=== PATIENT | female | born 1985 | race Caucasian/White ===

== ENCOUNTER → 2016-11-30 | Outpatient (REF) | payer OTHER | END | disposition home or self-care (01) | LOC: M SMT 16:54 | PROVIDERS: ATTEND Urology | DX: N39.0 Urinary tract infection, site not specified (principal) ==

== ENCOUNTER → 2016-12-06 | Outpatient (CLI) | payer OTHER ==
--- NOTE | 2016-12-06 09:39 | REP ---
CT ABDOMEN AND PELVIS WITHOUT IV OR ORAL CONTRAST: 12/06/2016 INDICATION: Recurrent urinary tract infection. Right-sided pain. COMPARISON: None. TECHNIQUE: 3 mm spiral axial sections performed through the abdomen and pelvis without IV or oral contrast. FINDINGS: The lung bases are clear bilaterally. Liver, spleen, adrenal glands and kidneys are normal. There is no hydronephrosis or obstructing ureteral calculi. There is a 1 mm nonobstructing left lower renal calculus. There is no hydronephrosis. The pancreas has an undulating appearance medial to the spleen, most compatible with anatomic variant. The stomach is contracted. Small bowel is without obstruction. Abdominal aorta is of normal course and caliber. There has been a prior cholecystectomy. There is a 7.5 mm tiny umbilical hernia containing omental fat only. The bladder is contracted. The uterus and adnexa are within normal limits. There is moderate stool within the right and transverse colon. There is no free air or ascites. IMPRESSION: No hydronephrosis or obstructing ureteral calculi bilaterally. No renal cortical scarring. 1 mm nonobstructing calculus lower pole left kidney. Contracted bladder. Mild fullness within the tail of the pancreas most compatible with undulating contour / normal variant of the distal pancreas. May consider abdominal ultrasound in further evaluation. MTDD
== END | disposition home or self-care (01) ==
LOC: M RAD 07:37 → EDUNIT# 08:00
PROVIDERS: ATTEND Urology
DX: N39.0 Urinary tract infection, site not specified (principal); N20.0 Calculus of kidney

== ENCOUNTER → 2017-05-10 | Outpatient (REF) | payer OTHER | LOC: M LAB REF 04-09 08:54 | PROVIDERS: ATTEND Physician Assistant | DX: R10.9 Unspecified abdominal pain (principal) ==

== ENCOUNTER → 2017-12-02 | Outpatient (REF) | payer OTHER | LOC: M LAB REF 16:38 | DX: N39.0 Urinary tract infection, site not specified (principal) ==

== ENCOUNTER 2017-12-06 07:32 | Day surgery (SDC) | payer OTHER ==
[2017-12-06] MEDS: LR 1,000 ML IV (07:45)
[2017-12-06] MEDS ORDERED: MIDAZOLAM INJ 2 MG/2 ML VIAL (J2250) As Ordered (08:16)
[2017-12-06] MEDS ORDERED: LIDOCAINE 2% INJ 100 MG/5 ML SDV (FOR ANES.) As Ordered (08:16)
[2017-12-06] MEDS ORDERED: PROPOFOL 200 MG/20 ML VIAL As Ordered (08:16)
[2017-12-06] MEDS ORDERED: ONDANSETRON 4MG/2ML VIAL (J2405) As Ordered (08:16)
[2017-12-06] MEDS ORDERED: METOCLOPRAMIDE INJ 10MG/2ML VIAL (J2765) As Ordered (08:16)
[2017-12-06] MEDS ORDERED: fentaNYL 100 MCG/2 ML INJECTION (J3010) As Ordered (08:16)
[2017-12-06] MEDS ORDERED: SCOPOLAMINE 1MG TRANSDERMAL PATCH As Ordered (08:21)
[2017-12-06 08:23] LABS: CONTROL LINE UCG INT CTR LINE PRESENT; URINE PREG TEST NEGATIVE (NEGATIVE)
[2017-12-06] MEDS ORDERED: CEFAZOLIN 100MG/ML SYRINGE 1GM(J0690 PER 500MG) As Ordered (08:26)
[2017-12-06] MEDS: SCOPOLAMINE 1MG TRANSDERMAL PATCH TOP (08:28)
[2017-12-06] MEDS: CEFAZOLIN SOD 1 GM in APPROPRIATE DILUENT 1 EA IV (08:40)
[2017-12-06] MEDS ORDERED: ePHEDrine INJ 50 MG/ML VIAL As Ordered (08:52)
[2017-12-06] MEDS ORDERED: KETOROLAC 60 MG/2 ML VIAL (J1885) As Ordered (09:10)
[2017-12-06] MEDS: LIDOCAINE W/EPINEPHRINE 1% 20ML VIAL As Ordered (09:16)
[2017-12-06] MEDS: BUPIVACAINE HCL 0.25% 30 ML VIAL As Ordered (09:17)
[2017-12-06] MEDS ORDERED: PERCOCET 5MG/325MG TAB As Ordered (09:46)
[2017-12-06] MEDS: PERCOCET 5MG/325MG TAB PO (09:50)
[2017-12-06] MEDS ORDERED: MORPHINE 2 MG/ML 1ML SYRINGE IV (10:00)
[2017-12-06] MEDS ORDERED: KETOROLAC 30 MG/ML VIAL (J1885) IV (10:00)
[2017-12-06] MEDS ORDERED: NORCO, ANEXSIA 5/325MG TABLET (HYDROcodone/ACETAMINOPHEN) PO (10:00)
[2017-12-06] MEDS ORDERED: METOCLOPRAMIDE INJ 10MG/2ML VIAL (J2765) IV (10:00)
[2017-12-06] MEDS ORDERED: ONDANSETRON 4MG/2ML VIAL (J2405) IV ×2 (10:00)
[2017-12-06] MEDS ORDERED: fentaNYL 100 MCG/2 ML INJECTION (J3010) IV (10:00)
[2017-12-06] MEDS ORDERED: LR 1,000 ML IV ×2 (10:00)
== END 2017-12-06 11:28 | disposition home or self-care (01) ==
LOC: M SDC 07:32
DX: K42.9 Umbilical hernia without obstruction or gangrene (principal); F41.9 Anxiety disorder, unspecified; F32.9 Major depressive disorder, single episode, unspecified; I47.1 Supraventricular tachycardia; Z88.1 Allergy status to other antibiotic agents; Z79.899 Other long term (current) drug therapy; Z98.84 Bariatric surgery status
CPT/HCPCS: 49585

== ENCOUNTER → 2018-07-23 | Outpatient (REF) | payer OTHER | LOC: M SFHCLERA 15:26 | DX: N39.0 Urinary tract infection, site not specified (principal) ==